=== PATIENT | male | born 1935 | race Caucasian/White ===

== ENCOUNTER 2020-04-11 11:02 | Emergency (ER) | payer MEDICARE, BC ==
[~2020-04-11] VITALS: Ht 175.3 cm; Wt 81.8 kg
[2020-04-11 11:07] VITALS: TEMP 97.7
[2020-04-11] MEDS ORDERED: NORVASC 5MG5 MG/TAB PO ×2 (11:33→12:29)
[2020-04-11] MEDS ORDERED: CRESTOR40 MG PO (11:33)
[2020-04-11] MEDS ORDERED: PLAVIX 75MG TAB75 MG PO (11:34)
[2020-04-11] MEDS ORDERED: PROTONIX 40MG T40 MG PO (11:34)
[2020-04-11] MEDS ORDERED: RESTORIL 1515 MG/CAP PO (11:34)
[2020-04-11 11:35] LABS: BASO % 0.1 % (0.0-2.0); EOS # 0.1 (0.0-0.7); EOS % 1.2 % (0-4.0); GRAN # 4.9 (1.4-6.5); GRAN % 64.7 % (42.2-75.2); HEMOGLOBIN 10.2 g/dl (13.5-18.0); LYMPH # 1.6 (1.2-3.4); LYMPH % 21.4 % (20.0-51.0); MEAN CELL VOLUME 87 fl (80.0-100.0); MEAN CORPUSCULAR HEMOGLOBIN 28 pg (27.0-31.0); MEAN CORPUSCULAR HGB CONC 32 g/dl (33.0-37.0); MEAN PLATELET VOLUME 8.7 fl (7.4-10.4); MONO # 0.9 (0.1-0.6); MONO % 12.2 % (1.7-9.3); PLATELET COUNT 208 K/mm3 (130-400); RED BLOOD COUNT 3.65 M/mm3 (4.20-5.60); REDCELL DISTRIBUTION WIDTH-CV 13.4 % (11.5-14.5)
[2020-04-11] MEDS ORDERED: ASPIRIN 81M81 MG/TA2 PO (11:35)
[2020-04-11] MEDS ORDERED: AVAPRO TAB150 MG/TAB PO (11:35)
[2020-04-11 11:36] LABS: HEMATOCRIT 31.9 % (42.0-52.0)
[2020-04-11 11:37] LABS: INR 1.1 (0.8-3.0)
[2020-04-11 11:39] LABS: PARTIAL THROMBOPLASTIN TIME 29.9 SECONDS (26.0-37.0)
[2020-04-11 11:43] LABS: ALBUMIN 4.6 gm/dL (3.5-5.0); BILIRUBIN,TOTAL 0.8 mg/dL (0.0-1.0); CALCIUM 8.9 mg/dL (8.4-10.2); CREATININE, serum 1.24 (0.66-1.25); POTASSIUM 4.3 mmol/L (3.4-5.0); TOTAL PROTEIN 7.3 gm/dL (6.4-8.2)
[2020-04-11 12:07] LABS: COLLECTION METHOD CLEAN CATCH
[2020-04-11 12:18] LABS: PH 6 (5-8); SQUAMOUS EPITHELIAL None Seen /hpf; URINE APPEARANCE Clear; URINE BACTERIA None Seen /hpf; URINE BILIRUBIN Negative (NEGATIVE); URINE BLOOD Negative (NEGATIVE); URINE COLOR Straw; URINE GLUCOSE Negative (NEGATIVE); URINE KETONE Negative (NEGATIVE); URINE LEUKOCYTE ESTERASE Negative (NEGATIVE); URINE NITRATE Negative (NEGATIVE); URINE PROTEIN(semi-quant) Negative (NEGATIVE); URINE RBC 0-2 /hpf; URINE UROBILINOGEN Negative (NEGATIVE)
[2020-04-11 12:31] VITALS: BP 196/77; PULSE 61
== END 2020-04-11 12:40 | disposition home or self-care (01) ==
LOC: COL.ER 11:02
PROVIDERS: Family Medicine
DX: I10 Essential (primary) hypertension (principal); D64.9 Anemia, unspecified; Z88.8 Allergy status to other drugs, medicaments and biological substances; Z79.02 Long term (current) use of antithrombotics/antiplatelets; Z79.82 Long term (current) use of aspirin